=== PATIENT | female | born 1965 | race Caucasian/White ===

== ENCOUNTER 2020-02-25 02:00 | Outpatient (CLI) | payer BC, SELFPAY ==
[2020-02-25 17:23] LABS: SARS-CoV-2 RNA PCR Negative
== END 2020-02-25 02:01 | disposition home or self-care (01) ==
LOC: ANHCOVIDDT 02:00
PROVIDERS: Visit Provider Internal Medicine Gastroenterology
DX: Z01.812 Encounter for preprocedural laboratory examination (principal); Z20.822 Contact with and (suspected) exposure to COVID-19
CPT/HCPCS: C9803; U0003

== ENCOUNTER 2020-02-28 01:36 | Day surgery (SDC) | payer BC, SELFPAY ==
[2020-02-15 12:38] VITALS: BMI 26.7
[2020-02-28 07:12] VITALS: BP 152/90; PULSE 92; RESP 18; TEMP 37.1; O2SAT 99
[2020-02-28] MEDS: LACTATED RINGERS 1,000 ML 150 ML IV CONT (07:26)
--- NOTE | 2020-02-28 07:39 | WPDANESEPPF ---
Anes - Initial Pre Proc Eval Procedure: Operation Date: 02/28/20 08:30 Proposed Procedures p Screening Colonoscopy - Dashawn Escobar MD Date/Time: 02/28/20 07:39 Surgeon: Dsahawn Escobar MD Pre Op Diagnosis: neoplasm screening Patient Data Age: 54 Gender: F Height: 5 ft 7 in Weight: 74.7 kg Last Vital Signs Temp 98.7 F 02/28/20 07:12 Pulse 92 02/28/20 07:12 Resp 18 02/28/20 07:12 BP 152/90 H 02/28/20 07:12 Pulse Ox 99 02/28/20 07:12 Allergies Allergy/AdvReac Type Severity Reaction Status Date / Time ranitidine Allergy Severe throat Verified 02/28/20 07:10 swelling Home Medications Medication Instructions Recorded Confirmed Type No Home Medications 02/28/20 02/28/20 History Patient hx anesthesia problems: none Family hx anesthesia problems: none PMFSH Past Medical History Medical History (Updated 02/28/20 @ 07:38 by Aiden Gipson MD) History of cancer of left breast no radiation or chemo Social History Social History Smoking packs per day: 1 Smoking cigarettes per day: 20.0 Years smoked: 25 Smoking pack-years: 25.00 Smoking status: Current every day smoker Tobacco type: cigarettes Alcohol intake: never Substance use: never Substance use type: does not use Living arrangements: with family Spiritual care concerns: No Anes - Eval Final PreProcedure Day of Procedure 02/28/20 07:39 Patient weight: normal Heart: regular rate and rhythm Lungs: clear to auscultation Airway: Mallampati scale class II Neurological: alert and oriented Last oral intake: >/= 8 hours ASA classification: II Emergent: no Anesthetic plan: proceed Anesthesia type and monitoring: general GIVS and standard monitoring Informed Consent: The patient's anesthetic plan and its attendant risks and benefits were discussed with the patient/family/POA. Questions were solicited and answers provided to the satisfaction of the patient/family/POA.
--- NOTE | 2020-02-28 08:36 | PM.HPGS ---
History of Present Illness History of Present Illness Consent: Risks, benefits, and alternatives have been discussed and questions answered. Patient agrees to proceed with procedure. Chief complaint: neoplasm screening Narrative: Bridgette Mckeon is a 54 year old female with colon polyps about 4 years ago. Review of Systems Constitutional: Constitutional: Denies headache(s) and Denies weakness Eyes: Eyes: Denies blurry vision ENT: Reports Normal hearing present, Denies headache(s) and Denies neck pain Cardiovascular: Cardiovascular: Denies chest pain and Denies dyspnea Respiratory: Respiratory: Denies dyspnea Gastrointestinal: Gastrointestinal: Reports no additional gastrointestinal complaints Genitourinary: Genitourinary: Denies dysuria Musculoskeletal: Musculoskeletal: Denies neck pain Integumentary/Breasts: Skin/Breast: Denies dry skin Neurologic: Reports Normal hearing present, Denies headache(s) and Denies weakness Psychiatric: Psychiatric: Denies anxiety Endocrine: Endocrine: Denies change in body appearance Hematologic/Lymphatic: Hematologic/Lymphatic: Denies easy bleeding Allergic/Immunologic: Allergic/Immunologic: Denies urticaria PMFSH Past Medical History Medical History (Updated 02/28/20 @ 08:36 by Dashawn Escobar MD) Adenomatous colon polyp History of cancer of left breast no radiation or chemo Social History Social History Smoking packs per day: 1 Smoking cigarettes per day: 20.0 Years smoked: 25 Smoking pack-years: 25.00 Smoking status: Current every day smoker Tobacco type: cigarettes Alcohol intake: never Substance use: never Substance use type: does not use Living arrangements: with family Spiritual care concerns: No Meds Home Medications and Allergies Home Medications Medication Instructions Recorded Confirmed Type No Home Medications 02/28/20 02/28/20 History Allergies Allergy/AdvReac Type Severity Reaction Status Date / Time ranitidine Allergy Severe throat Verified 02/28/20 07:10 swelling Vital Signs Vital Signs - 24 hr 02/28/20 07:12 Temperature 98.7 F Pulse Rate 92 Respiratory Rate 18 Blood Pressure 152/90 H Pulse Oximetry 99 Exam Const: General: comfortable and no acute distress HENMT: General nose exam: Normal nares present Eyes: General: appearance normal, both eyes and all related structures Neck: Neck: no JVD Resp: Auscultation: clear to auscultation bilaterally Cardio: Rate: regular rate Rhythm: regular rhythm GI: Inspection: non-distended GI Palp: Yes Soft to palpation Skin: General skin exam: normal color Neuro: General: gait normal Speech: normal speech Extrem: General: normal to inspection Psych: Mental Status: mental status grossly normal Assessment and Plan Assessment and plan (1) Adenomatous colon polyp: Code(s): D12.6 - Benign neoplasm of colon, unspecified Status: Acute Assessment and Plan: will proceed with colonoscopy
[2020-02-28 08:55] VITALS: BP 117/65; PULSE 70; RESP 16; O2SAT 99
[2020-02-28 09:05] VITALS: BP 125/75; PULSE 71; RESP 16; O2SAT 100
[2020-02-28 09:15] VITALS: BP 127/97; PULSE 69; RESP 18; O2SAT 100
== END 2020-02-28 09:35 | disposition home or self-care (01) ==
PROVIDERS: Visit Provider Internal Medicine Gastroenterology
PROC: 0DJD8ZZ Inspection of Lower Intestinal Tract, Via Natural or Artificial Opening Endoscopic (ICD-10-PCS; CPT 45378; principal; 2020-02-28 08:30)
DX: Z12.11 Encounter for screening for malignant neoplasm of colon (principal); D12.3 Benign neoplasm of transverse colon; K57.30 Diverticulosis of large intestine without perforation or abscess without bleeding; Z85.3 Personal history of malignant neoplasm of breast; F17.210 Nicotine dependence, cigarettes, uncomplicated
CPT/HCPCS: 45385; 88305; J2704; J7120

== ENCOUNTER 2022-06-07 02:51 | Day surgery (SDC) | payer BC, SELFPAY ==
[2022-06-03 13:34] VITALS: BMI 25.0
--- NOTE | 2022-06-03 13:42 | PC.NURSE ---
Report to the Outpatient Waiting Room, entrance under the green pavilion located off [facility], at time 1200 on date 06/07/22. Planned Procedure Time: 1400. Time changes happen often and if your time is changed the preop area will call you the afternoon before. - You and your visitor will be asked to self-screen and do not enter if you have any COVID symptoms. - A mask is optional within the hospital at this time. Patients may have clear liquids (water, carbonated beverages, clear teas, apple juice) until 3 hours prior to surgery with a maximum of 20 ounces. - No food from midnight until time of surgery Take the following medications with a SIP of water the morning of surgery: NONE DO NOT STOP ANY OF YOUR OTHER PRESCRIPTION MEDICATIONS PRIOR TO SURGERY?EXCEPT THE FOLLOWING Medications to discontinue per physician: N/A Date to take last dose: N/A Please no make-up, nail romanian, hairspray, perfume, deodorant, or body powder the day of surgery. No jewelry (including any body piercings) or valuables the day of surgery, leave them at home. Please take a shower or bath the night before, or the morning of, surgery with an antibacterial soap. Wear comfortable, loose fitting clothing. - Jewelry must be removed prior to entering the operating room. Rings and piercings that are not removed may be cut off. - The hospital will not accept responsibility for valuables. - Please leave all valuables, including medications, at home the day of surgery. If you are going home after surgery, a licensed student truck driver must drive you home. - NO public transportation without another adult if you receive anesthesia. - We recommend that an adult stay with you for 24 hours following discharge. - We also recommend that you do not drive, make important decision, drink alcoholic beverages, or take any drugs that were not prescribed by your health care provider for at least 24 hours after your discharge time. Follow any additional instructions given to you from your surgeon. If you or anyone in your household have experienced Covid symptoms in the past week, please notify your surgeon or the nurse liaison at the phone number below for possible testing. Telephone instructions given to PT - FRIDA PERRY and asked if any additional questions and then verbalized understanding. Patient advised to call surgeon office or pre surgery nurse liaison [phone] if any additional questions.
--- NOTE | 2022-06-05 06:23 | PM.IMHP ---
H&P: HPI History of Present Illness Date/Time: 06/05/22 06:23 Chief Complaint: high-grade vulvar dysplasia Narrative: this 57-year-old female with a lesion in her perineal area which was biopsied at the leading edge and showed high-grade LAKHWINDER. She is admitted for laser destruction. Risks and benefits reviewed [facility] Past Medical History Medical History Adenomatous colon polyp History of cancer of left breast no radiation or chemo Social History Social History Smoking packs per day: 1 Smoking cigarettes per day: 20.0 Years smoked: 30 Smoking pack-years: 30.00 Smoking status: Current some day smoker Tobacco type: cigarettes Alcohol intake: never Substance use: never Substance use type: does not use Living arrangements: alone Spiritual care concerns: No Meds Home Medications and Allergies Home Medications Medication Instructions Recorded Confirmed Type loratadine 10 mg tablet (Claritin) 10 mg PO DAILY 06/03/22 06/03/22 History losartan 50 mg tablet 50 mg PO QPM 06/03/22 06/03/22 History Allergies Allergy/AdvReac Type Severity Reaction Status Date / Time ranitidine Allergy Severe throat Verified 06/03/22 13:32 swelling Exam Const: General: cooperative, healthy appearing, comfortable and well groomed Nutritional Appearance: average body habitus Orientation/consciousness: oriented to person, oriented to place and oriented to time HENMT: Head: normal to inspection Resp: Effort & Inspection: normal respiratory effort Cardio: Rate: regular rate Rhythm: regular rhythm Heart sounds: S1 normal heart sound present and S2 normal heart sound present GI: Inspection: normal to inspection : External Female Exam: normal external appearance ( approximately the 1x1cm lesion seen at the perineum) Assessment and Plan Assessment and plan (1) Vulvar intraepithelial neoplasia (LAKHWINDRE) grade 3: Code(s): D07.1 - Carcinoma in situ of vulva Status: Acute Plan CO2 laser of said lesion
--- NOTE | 2022-06-07 05:54 | WPDHPUPDATE1 ---
History and Physical Update Update Date/Time: 06/07/22 05:54 History and Physical has been reviewed, including an updated exam of the patient. There are NO changes in the patient's condition. Risks, benefits, and alternatives have been discussed and questions answered. Patient agrees to proceed with procedure.
[2022-06-07 12:15] VITALS: BP 162/91; PULSE 73; RESP 16; TEMP 36.8; O2SAT 99; BMI 24.6
[2022-06-07] MEDS: LACTATED RINGERS 1,000 ML 30 ML IV CONT (12:20)
--- NOTE | 2022-06-07 13:13 | P.PNAN_ITS ---
Anes - Initial Pre Proc Eval Procedure: Operation Date: 06/07/22 14:00 Proposed Procedures p CO2 Laser of Vulvar Lesion - Varun Belcher MD Date/Time: 06/07/22 13:13 Surgeon: Varun Belcher MD Pre Op Diagnosis: vulvar higrade lesion, OFELIA 3 Patient Data Age: 57 Gender: F Height: 1.7 m Weight: 71.3 kg Allergies Allergy/AdvReac Type Severity Reaction Status Date / Time ranitidine Allergy Severe throat Verified 06/07/22 12:31 swelling Home Medications Medication Instructions Recorded Confirmed Type loratadine 10 mg tablet (Claritin) 10 mg PO DAILY 06/03/22 06/03/22 History losartan 50 mg tablet 50 mg PO QPM 06/03/22 06/03/22 History hydrocodone 5 mg-acetaminophen 325 1 tablet PO Q4H PRN pain #20 tabs 06/07/22 Rx mg tablet Patient hx anesthesia problems: none Family hx anesthesia problems: none Results Review: All pre-operative results and documents have been reviewed as part of the pre- operative evaluation. [facility]LY [facility] Past Medical History Medical History Adenomatous colon polyp History of cancer of left breast no radiation or chemo Social History Social History Smoking packs per day: 1 Smoking cigarettes per day: 20.0 Years smoked: 30 Smoking pack-years: 30.00 Smoking status: Current some day smoker Tobacco type: cigarettes Alcohol intake: never Substance use: never Substance use type: does not use Living arrangements: alone Spiritual care concerns: No Anes - Eval Final PreProcedure Day of Procedure 06/07/22 13:13 Patient weight: normal Heart: regular rate and rhythm Lungs: clear to auscultation Airway: Mallampati scale class II Neurological: alert and oriented Last oral intake: >/= 8 hours ASA classification: III Emergent: no Anesthetic plan: proceed Anesthesia type and monitoring: general GIVS and standard monitoring Results Review: All pre-operative results and documents have been reviewed as part of the pre- operative evaluation. Informed Consent: The patient's anesthetic plan and its attendant risks and benefits were discussed with the patient/family/POA. Questions were solicited and answers provided to the satisfaction of the patient/family/POA.
[2022-06-07] MEDS: SILVER SULFADIAZINE 1% CR 50 GM JAR (*BKC) 1 APPLIC TOPICAL (14:22)
--- NOTE | 2022-06-07 14:24 | P.OP_ITS ---
Procedure Note - Detailed Date of Procedure 06/07/22 Pre-op Diagnosis vulvar higrade lesion, LAKHWINDER 3 Post-op Diagnosis Same Procedure Performed CO2 laser LAKHWINDER 3 Surgeon Varun Belcher MD Anesthesia General Indications this is 57-year-old female with directed biopsy by vulvoscopy which showed OFELIA 3 Findings LAKHWINDER 3 at the vaginal fourchette Description of Procedure the patient was prepped draped in normal sterile fashion placed in dorsal lithotomy position. Under excellent general mask anesthesia the vulvar area was swabbed with ascetic acid. The white [place] in the perineum was then burned to the 2nd layer with CO2 laser. Blood loss was none. She was awakened and went to recovery in satisfactory condition. Silvadene cream was placed over the burned area there were no complications and all sponge needle and instruments counts were correct Estimated Blood Loss 1 Drains No Packing No Pathology None sent Complications No immediate complications Condition Stable Disposition PACU
[2022-06-07 14:25] VITALS: BP 129/56; PULSE 63; RESP 16; O2SAT 96
[2022-06-07 14:55] VITALS: BP 133/69; PULSE 62; RESP 16
[2022-06-07 15:21] VITALS: BP 153/69; PULSE 62; RESP 16
== END 2022-06-07 16:00 | disposition home or self-care (01) ==
PROVIDERS: PCP Nurse Practitioner Family; Visit Provider Obstetrics & Gynecology
PROC: (CPT 56501; principal; 2022-06-07 14:00)
DX: D07.1 Carcinoma in situ of vulva (principal); Z85.3 Personal history of malignant neoplasm of breast; F17.210 Nicotine dependence, cigarettes, uncomplicated
CPT/HCPCS: 56501; A9270; J2250; J2704; J3010; J7120